=== PATIENT | female | born 1995 | race Two or more races ===

== ENCOUNTER 2021-05-18 15:37 | Emergency (ER) | payer SELFPAY ==
[~2021-05-18] VITALS: Ht 152.4 cm; Wt 62.6 kg
[2021-05-18 16:29] LABS: Basophils # (auto) 0 10 ^3/uL (0-0.2); Basophils % (auto) 0.5 % (0.0-2.0); Eosinophils # (auto) 0.1 10 ^3/uL (0-0.8); Eosinophils % (auto) 1.2 % (0.0-7.0); Hematocrit 37.2 % (36.0-46.0); Hemoglobin 12.6 g/dL (12.2-16.2); Lymphocytes # (auto) 2.2 10 ^3/uL (0.4-5.4); Lymphocytes % (auto) 29.2 % (10.0-50.0); Mean Corpuscular Hemoglobin 27.5 pg (28.0-32.0); Mean Corpuscular Volume 80.8 fL (80.0-100.0); Monocytes # (auto) 0.6 10 ^3/uL (0-1.3); Monocytes % (auto) 8.5 % (0.0-12.0); Neutrophils # (auto) 4.5 10 ^3/uL (1.6-8.6); Neutrophils % (auto) 60.6 % (37.0-80.0); Nucleated Red Blood Cells % 0.1 %; Red Cell Distribution Width 18.3 % (11.8-14.3); White Blood Cell 7.5 10^3/uL (4.4-10.8)
[2021-05-18 16:44] LABS: Albumin 3.9 g/dL (3.4-5.0); Calcium 9.8 mg/dL (8.5-10.1); Potassium 3.4 mmol/L (3.5-5.1)
[2021-05-18 16:48] LABS: BUN/Creatinine Ratio 4.6; Bilirubin, Total 0.6 mg/dL (0.2-1.0); Total Protein 8.3 g/dL (6.4-8.2)
[2021-05-18] MEDS ORDERED: POTASSIUM EFFERVESENT TAB 25 MEQ PO ONE (17:15)
[2021-05-18 17:32] LABS: Urine Bacteria NONE SEEN /hpf (None Seen); Urine Blood 1+ /uL (Negative); Urine Specific Gravity 1.008 (1.001-1.035); Urine WBC 1 /hpf (0 - 5)
[2021-05-18] MEDS ORDERED: PANT40TA2 PO (17:53)
[2021-05-18 18:28] VITALS: BP 132/81
== END 2021-05-18 18:29 | disposition home or self-care (01) ==
LOC: EDBD 15:37 → ER 15:37
DX: K29.00 Acute gastritis without bleeding (principal); E87.6 Hypokalemia; Z88.1 Allergy status to other antibiotic agents
CPT/HCPCS: 36415; 74176; 80053; 81001; 83690; 85025

== ENCOUNTER 2021-07-01 13:02 | Emergency (ER) | payer MEDICAID, OTHER ==
[~2021-07-01] VITALS: Ht 152.4 cm; Wt 59.0 kg
[~2021-07-01 13:02] MED LIST: PANT40TA2 PO
[2021-07-01 13:04] VITALS: BP 147/93
[2021-07-01] MEDS ORDERED: ALBUTEROL SULF 2.5 MG/0.5ML(0.5%) NEB SOLN NEB ONE (16:30)
[2021-07-01] MEDS ORDERED: IPRATROPIUM BROM 0.5 MG/2.5ML INH SOL NEB ONE (16:30)
== END 2021-07-01 17:05 | disposition home or self-care (01) ==
LOC: ER 13:02
DX: J98.01 Acute bronchospasm (principal); Z88.1 Allergy status to other antibiotic agents
CPT/HCPCS: 71046; 93005; 94640; 99283; J7644

== ENCOUNTER 2022-01-04 11:36 | Emergency (ER) | payer SELFPAY ==
[~2022-01-04] VITALS: Ht 172.7 cm; Wt 66.5 kg
[2022-01-04 15:45] LABS: Urine Bacteria FEW /hpf (None Seen); Urine Blood Negative /uL (Negative); Urine Specific Gravity 1.006 (1.001-1.035); Urine WBC 3 /hpf (0 - 5)
[2022-01-04 16:00] VITALS: BP 126/74
[2022-01-04] MEDS ORDERED: NITR-87 PO (16:04)
[2022-01-04] MEDS ORDERED: NITR-52 PO (16:04)
== END 2022-01-04 16:55 | disposition home or self-care (01) ==
LOC: ER 11:36
DX: N39.0 Urinary tract infection, site not specified (principal); Z88.1 Allergy status to other antibiotic agents
CPT/HCPCS: 81001

== ENCOUNTER 2022-03-06 12:13 | Emergency (ER) | payer SELFPAY ==
[~2022-03-06] VITALS: Ht 152.4 cm; Wt 59.0 kg
[~2022-03-06 12:13] MED LIST changes: +NITR-52 PO; +NITR-87 PO
[2022-03-06 14:11] VITALS: BP 138/87
[2022-03-06] MEDS ORDERED: LIDO2SOL23 MT (14:34)
[2022-03-06] MEDS ORDERED: AZIT250T8 PO (14:34)
== END 2022-03-06 14:58 | disposition home or self-care (01) ==
LOC: ER 12:13
DX: J03.90 Acute tonsillitis, unspecified (principal); Z88.1 Allergy status to other antibiotic agents

== ENCOUNTER 2023-05-10 11:40 | Emergency (ER) | payer BC, MEDICAID ==
[~2023-05-10] VITALS: Ht 172.7 cm; Wt 69.1 kg
[~2023-05-10 11:40] MED LIST changes: +AZIT-185 PO; +LIDO2SOL26 MT
[2023-05-10] MEDS ORDERED: IBUP1TAB4 PO (13:37)
[2023-05-10] MEDS ORDERED: CETI10CH PO (13:37)
[2023-05-10 13:48] VITALS: BP 130/80; PULSE 88; RESP 16; TEMP 97.3; O2SAT 98
== END 2023-05-10 13:51 | disposition home or self-care (01) ==
LOC: ER 11:40
DX: H93.8X3 Other specified disorders of ear, bilateral (principal); Z79.899 Other long term (current) drug therapy; Z88.1 Allergy status to other antibiotic agents

== ENCOUNTER 2024-10-01 01:45 | Emergency (ER) | payer MEDICAID, OTHER ==
[~2024-10-01] VITALS: Ht 152.4 cm; Wt 72.6 kg
[~2024-10-01 01:45] MED LIST changes: +CETI10CH PO; +IBUP1TAB4 PO
--- NOTE | 2024-10-01 02:18 | ED.PDOC ---
History of Present Illness HPI Comments 28-year-old obese female, with a history of UTI's, presents with c/c abnormal vaginal itching sensation and odorous urine. Patient reports symptoms starting last week and expresses concerns for possible UTI. Symptoms are reported to have stop, today, prior to arrival. Patient comments also on discussing concern with PCP, earlier, this week, but was told on having and not having a UTI after being evaluated in addition to refusing antibiotic prescription when offered. Last sexually active in February, this year. No further acute symptoms reported at this time. Chief Complaint: Urinary Time Seen by MD: 02:00 Reviewed Notes: Nurses Notes, Medications, Allergies Allergies: Coded Allergies: Levofloxacin (Verified Allergy, Unknown, 05/18/21) Home Meds Active Scripts Ibuprofen Micronized (Ibuprofen) 400 Mg Tab, 400 MG PO TIDWMEALS for 10 Days, #30 TAB 0 Refills Prov:SOPHY BERNAL NP 05/10/23 Cetirizine Hcl (Cetirizine Hcl) 10 Mg Chw, 10 MG PO DAILY for 30 Days, #30 TAB 0 Refills Prov:SOPHY BERNAL NP 05/10/23 Lidocaine HCl (Mouth-Throat) (Lidocaine HCl Viscous) 2 % Leatha, 5 ML MT TID, #100 ML Prov:FEMI RABAGO 03/06/22 Azithromycin (ZITHROMAX TABLET) 250 Mg Tb, 250 MG PO DAILY, #6 TAB Prov:FEMI RABAGO 03/06/22 Nitrofurantoin (Nitrofurantoin) 100 Mg Cap, 1 CAP PO TIDP PRN for 3 Days, #10 CAP Prov:KEV LOPEZ PAC 01/04/22 Nitrofurantoin Monohydrate Mac (Macrobid) 100 Mg Cap, 100 MG PO BID for 5 Days, #10 CAP Prov:KEV LOPEZ PAC 01/04/22 Pantoprazole Sodium Sesquihydr (Protonix) 40 Mg Tab, 40 MG PO DAILY PRN for 10 Days, #10 TAB Prov:ZURI CURRIE MD 05/18/21 Information Source: Patient Mode of Arrival: Ambulatory Severity: Moderate Timing: Hours Duration: Since onset Prehospital treatment: None Past Medical History PAST MEDICAL HISTORY: UTI'S Surgical History: Denies all surgeries DISH CLOTH INSPECTOR History: No Pertinent DISH CLOTH INSPECTOR History Family History Family History: Reviewed,noncontributory to illness Social History Smoker: Non-Smoker Alcohol: Denies ETOH Use Drugs: Denies Drug Use Lives In: Home All Other Systems: Reviewed and Negative (Comprehensive systems review obtained and negative except for what is stated in the HPI.) Physical Exam General Appearance: No Apparent Distress, Obese HEENT: Normal ENT Inspection, Pharynx Normal, TMs Normal Neck: Full Range of Motion, Non-Tender, Normal, Normal Inspection Respiratory: Chest Non-Tender, Lungs Clear, No Accessory Muscle Use, No R espiratory Distress, Normal Breath Sounds Cardiovascular: No Edema, No JVD, No Murmur, No Gallop, Normal Peripheral Pulses, Regular Rate/Rhythm Breast Exam: Deferred Gastrointestinal: No Organomegaly, Non Tender, No Pulsatile Mass, Normal Bowel Sounds, Soft Genitalia: Deferred Pelvic: Deferred Rectal: Deferred Extremities: No calf tenderness, Normal capillary refill, Normal inspection, Normal range of motion, Non-tender, No pedal edema Musculoskeletal : Apperance: Normal Neurologic: Alert, punch press operator II-XII nml as Tested, No Motor Deficits, Normal Affect, Normal Mood, No Sensory Deficits Cerebellar Function: Normal Reflexes: Normal Skin: Dry, Normal Color, Warm Lymphatic: No Adenopathy Was a procedure done? Was a procedure done?: No Differential Dx Considerations may include: UTI, anxiety X-Ray, Labs, Meds, VS Vital Signs Date Time Temp Pulse Resp B/P (MAP) Pulse Ox O2 Delivery O2 Flow Rate FiO2 10/01/24 03:07 66 12 99 Room Air* 0 21 10/01/24 03:06 98.2 66 12 139/68 (91) 99 98.2 10/01/24 01:46 98.3 77 16 146/75 96 98.3 Lab Test 10/01/24 02:00 Range/Units Urine Color Light-yellow Yellow Urine Clarity Clear Clear Urine pH 5.5 5.0-9.0 Urine Specific [place] 1.013 1.001-1.035 Urine Protein Negative Negative Urine Ketones Negative Negative Urine Blood Negative Negative /uL Urine Nitrite Negative Negative Urine Bilirubin Negative Negative Urine Urobilinogen Normal Negative mg/dL Urine Leukocyte Esterase Trace Negative /uL Urine RBC 2 0 - 4 /hpf Urine Microscopic WBC 1 0-5 /HPF Urine Squamous Epithelial Cells Few <5 /hpf Urine Bacteria None seen None Seen /hpf Urine Hyaline Casts Few 0 - 2 /lpf Urine Glucose Normal Normal mg/dL Time of 1ST Reevaluation: 02:30 Reevaluation 1ST: Unchanged Patient Education/Counseling: Diagnosis, Treatment, Need For Follow Up Family Education/Counseling: No Family Present Comments Great patient has trace leukocyte esterase only no nitrites. Given that the patient has no symptoms now I do not care and management I do not feel patient needs to be on any antibiotics at this time. Additional Information Previous visits reviewed: N/A The following tests were ordered, and results were reviewed by me: urine dip Additional Information was gathered from interviewing the following independent historians: N/A I reviewed and agreed with the following test results read by other providers: N/A I discussed treatment and results with medical personnel and: patient SEPSIS Sepsis Screen Date sepsis recognized/suspect: Oct 01, 2024 Time Sepsis recognized/suspect: 0146 Recent Procedure: No On Antibiotic Therapy: No Respiratory Rate >20: No Heart Rate >90: No Temp<36 C (96.8 F) or >38.3 C: No SBP <90 or MAP <65 mmHG: No New Acute Mental Status Change: No Is the patient on CPAP, BIPAP,: No Physician Orders Urine Dip (10/01/24 ) Vital Signs Date Time Temp Pulse Resp B/P (MAP) Pulse Ox O2 Delivery O2 Flow Rate FiO2 10/01/24 03:07 66 12 99 Room Air* 0 21 10/01/24 03:06 98.2 66 12 139/68 (91) 99 98.2 10/01/24 01:46 98.3 77 16 146/75 96 98.3 Departure 1 Departure Time of Disposition: 03:41 Impression: Primary Impression: Person with feared complaint in whom no diagnosis was made Disposition: 01 HOME / SELF CARE / HOMELESS Condition: Good Discharged With: Self Critical Care Note Critical Care Time?: No Stability Stability form required: No Heart Score Heart Score: Heart Score Response (Comments) Value History N/A 0 EKG N/A 0 Age N/A 0 Risk Factors N/A 0 Troponin N/A 0 Total 0 I personally scribed for LIUDMILA ASHBY MD ([email or web address]) on 10/01/24 at 02:18. Electronically submitted by Malik De Olievira ([email or web address]). LIUDMILA ASHBY MD Oct 01, 2024 02:18
[2024-10-01 03:06] VITALS: BP 139/68; TEMP 98.2
[2024-10-01 03:07] VITALS: PULSE 66; RESP 12; O2SAT 99
[2024-10-01 03:34] LABS: Urine Protein, UAD Negative (Negative)
== END 2024-10-01 03:52 | disposition home or self-care (01) ==
LOC: ER 01:45
DX: L29.2 Pruritus vulvae (principal); Z71.1 Person with feared health complaint in whom no diagnosis is made; Z88.1 Allergy status to other antibiotic agents
CPT/HCPCS: 81001

== ENCOUNTER 2024-11-04 01:21 | Emergency (ER) | payer MEDICAID ==
[2024-11-04 01:22] VITALS: BP 127/96; PULSE 123; RESP 16; TEMP 98.2; O2SAT 99
--- NOTE | 2024-11-04 02:05 | ED.PDOC ---
History of Present Illness HPI Comments 29-year-old female came to ER for dizziness. Patient states for the past 3 weeks, she she has been feeling very "dehydrated". She has been feeling dizzy, nauseated, generalized muscle and joint pains, with tingling of her upper and lower extremities. Patient also complaining of a smelling odor emitting of her right hand. REVIEW OF SYSTEMS: General: No fever, no chills, (+) fatigue, (+) myalgia HEENT: No sore throat, no earache, no congestion, no neck pain. Cardiac: No chest pain. No palpitations. Lungs: No shortness of breath, no cough. GI: No nausea, no vomiting, no diarrhea, no constipation, no abdominal pain : No dysuria, frequency, or urgency. No hematuria. Musculoskeletal: No joint pain , no joint swelling, no extremity edema. Skin: No rash, no itching. Neuro: No headache, (+) dizziness, (+) weakness EXAM: General: Awake, alert and oriented. No acute distress. Skin: Skin in warm, dry and intact. Appropriate color for ethnicity. No rash or discoloration of the right hand. HEENT: The head is normocephalic and atraumatic. Conjunctivae are clear without exudates or hemorrhage. Sclera is non-icteric. EOM are intact. No signs of nystagmus. Eyelids are normal in appearance without swelling or lesions. Oral mucosa is pink and moist Neck: The neck is supple with normal range of motion. No JVD. Cardiac: Heart rate and rhythm are normal. No murmurs, gallops, or rubs are auscultated. Respiratory: No signs of respiratory distress. Lung sounds are clear in all lobes bilaterally without rales, rhonchi, or wheezes. Abdominal: Abdomen is soft, non-tender without distention. Bowel sounds are present and normoactive in all four quadrants. Extremities: Upper and lower extremities are atraumatic in appearance without deformity or edema. Neurological: The patient is awake, alert and oriented to person, place, and time with normal speech. Speech is clear. There is no facial asymmetry. Normal [id number] test. Normal gait. Romberg negative Psychiatric: Appropriate mood and affect. Good judgement and insight Chief Complaint: Dizziness Time Seen by MD: 02:04 Reviewed Notes: Nurses Notes Allergies: Coded Allergies: Levofloxacin (Verified Allergy, Unknown, 05/18/21) Home Meds Active Scripts Ibuprofen Micronized (Ibuprofen) 400 Mg Tab, 400 MG PO TIDWMEALS for 10 Days, #30 TAB 0 Refills Prov:SOPHY BERNAL WATER TANKER DRIVER 05/10/23 Cetirizine Hcl (Cetirizine Hcl) 10 Mg Chw, 10 MG PO DAILY for 30 Days, #30 TAB 0 Refills Prov:SOPHY BERNAL WATER TANKER DRIVER 05/10/23 Lidocaine HCl (Mouth-Throat) (Lidocaine HCl Viscous) 2 % Leatha, 5 ML MT TID, #100 ML Prov:FEMI RABAGO 03/06/22 Azithromycin (ZITHROMAX TABLET) 250 Mg Tb, 250 MG PO DAILY, #6 TAB Prov:FEMI RABAGO 03/06/22 Nitrofurantoin (Nitrofurantoin) 100 Mg Cap, 1 CAP PO TIDP PRN for 3 Days, #10 CAP Prov:KEV LOPEZ PAC 01/04/22 Nitrofurantoin Monohydrate Mac (Macrobid) 100 Mg Cap, 100 MG PO BID for 5 Days, #10 CAP Prov:KEV LOPEZ PAC 01/04/22 Pantoprazole Sodium Sesquihydr (Protonix) 40 Mg Tab, 40 MG PO DAILY PRN for 10 Days, #10 TAB Prov:ZURI CURRIE MD 05/18/21 Information Source: Patient Mode of Arrival: Ambulatory Past Medical History PAST MEDICAL HISTORY: UTI'S Surgical History: Denies all surgeries Surgical History (Other): Back surgery CARBON SEQUESTRATION PLANT ENGINEER History: No Pertinent CARBON SEQUESTRATION PLANT ENGINEER History Family History Family History: Reviewed,noncontributory to illness Social History Smoker: Non-Smoker Alcohol: Denies ETOH Use Drugs: Denies Drug Use Lives In: Home Was a procedure done? Was a procedure done?: No Differential Dx Considerations may include: Differential diagnoses considered include but are not limited to cardiac structural disease, arrhythmia, acute coronary syndrome, orthostasis, pulmonary embolism, dissection, seizure, basilar stroke, other. X-Ray, Labs, Meds, VS Vital Signs Date Time Temp Pulse Resp B/P (MAP) Pulse Ox O2 Delivery O2 Flow Rate FiO2 11/04/24 01:22 98.2 123 16 127/96 99 98.2 Time of 1ST Reevaluation: 01:57 Reevaluation 1ST: Unchanged Patient Education/Counseling: Other Family Education/Counseling: No Family Present SEPSIS Sepsis Screen Date sepsis recognized/suspect: Nov 04, 2024 Time Sepsis recognized/suspect: 0123 Recent Procedure: No On Antibiotic Therapy: No Respiratory Rate >20: No Heart Rate >90: Yes Temp<36 C (96.8 F) or >38.3 C: No SBP <90 or MAP <65 mmHG: No New Acute Mental Status Change: No Is the patient on CPAP, BIPAP,: No Physician Orders Electrocardigram (11/04/24 01:38) Vital Signs Date Time Temp Pulse Resp B/P (MAP) Pulse Ox O2 Delivery O2 Flow Rate FiO2 11/04/24 01:22 98.2 123 16 127/96 99 98.2 Departure 1 Departure Time of Disposition: 03:23 Impression: Primary Impression: Dizziness Additional Impression: Eloped from emergency department Disposition: 07 LEFT AWOL/ELOPED Condition: Stable Comments 29-year-old female who presented with dizziness. Patient was seen and evaluated, Discussed plan of care with the patient. Patient eloped from the emergency department prior to completing tests. Critical Care Note Critical Care Time?: No Stability Stability form required: No I personally scribed for JING ESTRADA MD ([email or web address]) on 11/04/24 at 02:05. Electronically submitted by Omid Acuna ([email or web address]). JING ESTRADA MD Nov 04, 2024 02:05
== END 2024-11-04 03:36 | disposition left against medical advice (07) ==
LOC: ER 01:21
DX: R42 Dizziness and giddiness (principal); R11.0 Nausea; Z79.899 Other long term (current) drug therapy; Z88.1 Allergy status to other antibiotic agents